=== PATIENT | female | born 1990 | race African-American/Black ===

== ENCOUNTER 2023-12-26 19:57 | Emergency (ER) | payer SELFPAY ==
[2023-12-26] MEDS ORDERED: FLUORESCEIN NA 1 EA STRIP ONE (20:07)
[2023-12-26] MEDS ORDERED: TETRACAINE 0.5% OPHTH SOLN 2 ML BOTTLE ONE (20:07)
[2023-12-26] MEDS ORDERED: DIPHTH,PERTUSS(ACELL),TET 0.5 ML DISP.SYRIN IM ONE (20:20)
[2023-12-26 20:21] VITALS: BP 135/86; PULSE 90; RESP 16; TEMP 97.3; BMI 34.8
[2023-12-26] MEDS ORDERED: TETRACAINE 0.5% HCL 0.6ML DROPPER.BOTTLE OU ONE (20:21)
[2023-12-26] MEDS ORDERED: FLUORESCEIN NA 1 EA STRIP OU ONE (20:22)
[2023-12-26] MEDS: DIPHTH,PERTUSS(ACELL),TET 0.5 ML DISP.SYRIN IM ONE (20:23)
[2023-12-26] MEDS ORDERED: ERYTHROMYCIN 0.5% OPHTHALMIC OINTMENT 3.5 GM TUBE ONE (20:39)
== END 2023-12-26 20:48 | disposition home or self-care (01) ==
LOC: FER 19:57
PROC: 3E0234Z Introduction of Serum, Toxoid and Vaccine into Muscle, Percutaneous Approach (ICD-10-PCS; principal; 2023-12-26)
DX: H57.12 Ocular pain, left eye (principal); W22.8XXA Striking against or struck by other objects, initial encounter; Z23 Encounter for immunization
CPT/HCPCS: 90715; 99284-25